=== PATIENT | male | born 2000 | race Caucasian/White ===

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

== ENCOUNTER 2023-11-12 22:59 | Emergency (ER) | payer BC ==
--- NOTE | 2023-11-12 23:09 | ED Physician Documentation ---
PD HPI DYSPNEA - Stated complaint Stated Complaint: SOA - Chief complaint Chief Complaint: Resp - History obtained from History obtained from: Patient - Additional information Additional information: HPI from patient. Patient complains of dyspnea, wheezing since approximately 8 PM tonight while at home at rest. A few hours earlier, the patient had used marijuana via vape pen. He says he did have mild cough shortly after using the vape pen but has had nearly no coughing since then. He denies fevers. He does not offer chest discomfort within his HPI, but when I ask him about chest discomfort, he says he has very minimal midline anterior chest constriction. The patient says he has had 1 similar previous episode which also was shortly after using marijuana with his vape pen, but that episode resolved without needing any medical attention. He had asthma as a child but has not had any asthmatic-type symptoms for several years. He denies leg swelling, hemoptysis. Review of Systems Constitutional: denies: Fever, Chills, Sweats Cardiac: reports: Chest pain / pressure. denies: Palpitations, Pedal edema, Calf pain Respiratory: reports: Dyspnea, Cough (minimal), Wheezing. denies: Hemoptysis GI: reports: Reviewed and negative PD PAST MEDICAL HISTORY - Past Medical History Past Medical History: Yes Psych: ADD/ADHD - Past Surgical History Past Surgical History: Yes - Present Medications Home Medications: Ambulatory Orders Medication Instructions Recorded Confirmed Dextroamphetamine/Amphetamine 20 mg PO DAILY 11/12/23 11/12/23 [Adderall 20 mg Tablet] Dextroamphetamine/Amphetamine 30 mg PO DAILY 11/12/23 11/12/23 [Adderall Xr 30 mg Capsule] Albuterol Sulf [Ventolin Hfa 1 - 2 puffs INH Q4HR PRN #18 gm 11/13/23 Inhaler] predniSONE [Deltasone] 40 mg PO DAILY 4 Days #8 tablet 11/13/23 - Allergies Allergies/Adverse Reactions: Allergies Allergy/AdvReac Type Severity Reaction Status Date / Time No Known Drug Allergies Allergy Verified 11/12/23 23:03 - Social History Does the pt smoke?: No Smoking Status: Never smoker Does the pt drink ETOH?: No Does the pt have substance abuse?: No - Immunizations Immunizations are current?: Yes - POLST Patient has POLST: No PD ED PE NORMAL - Vitals Vital signs reviewed: Yes - General General: Alert and oriented X 3, No acute distress, Well developed/nourished - Cardiac Cardiac: RRR, No murmur - Respiratory Respiratory: No respiratory distress - Extremities Extremities: No edema PD ED PE EXPANDED - Respiratory Respiratory: Wheezing (bilateral and diffuse inspiratory and expiratory wheezing) Results - Vitals Vitals: Oxygen O2 Source Room air PD Medical Decision Making - ED course Complexity details: re-evaluated patient, considered differential, d/w patient ED course: Patient has diffuse bilateral inspiratory and expiratory wheezing on initial exam, and with a good pleth on the monitor his pulse oximetry is reading as low as 88%. With some deep breaths in, it improves to 91-92%. Given duoneb and 60mg PO prednisone. On reevaluation, he is resting comfortably, reports excellent symptom improvement with duoneb. Pulse ox on room air is 95- 97% room air. On reexam (lung auscultation), he has good air flow and only end- expiratory bilateral wheezing. Return precautions reviewed. E-prescribed albuterol MDI and short course of daily prednisone to [facility] pharmacy Departure - Departure Disposition: 01 Home, Self Care Clinical Impression: Bronchospasm Condition: Good Instructions: ED Reactive Airway Disease Prescriptions: Albuterol Sulf [Ventolin Hfa Inhaler] 1 - 2 puffs INH Q4HR PRN #18 gm PRN Reason: Shortness Of Air/Wheezing predniSONE [Deltasone] 40 mg PO DAILY 4 Days #8 tablet Comments: I have electronically submitted prescriptions for an albuterol inhaler as well as a 4-day course of prednisone (steroid) to the [facility] in [place]. Forms: PCP List Discharge Date/Time: 11/13/23 01:00
[2023-11-13] MEDS: predniSONE 20 MG TABLET PO STA (00:03)
[2023-11-13] MEDS: IPRATROPIUM/ALBUTEROL 3 ML NEB INH STA (00:09)
[2023-11-13 01:12] VITALS: BP 133/74; O2SAT 91
== END 2023-11-13 01:00 | disposition home or self-care (01) ==
LOC: ED 22:59
DX: J98.01 Acute bronchospasm (principal)
CPT/HCPCS: 94640; 94664; 99283; J7512